=== PATIENT | male | born 1975 | race Caucasian/White ===

== ENCOUNTER 2021-11-01 18:29 | Emergency (ER) | payer OTHER, SELFPAY ==
[2021-11-01 18:39] VITALS: BP 136/74; PULSE 82; RESP 16; TEMP 36.7; O2SAT 100
--- NOTE | 2021-11-01 18:39 | ED.MALEGU ---
HPI - Male Genitourinary General Chief complaint: Urogenital-Male Stated complaint: UTI SYMPTOMS Time Seen by Provider: 11/01/21 18:39 Source: patient, RN notes reviewed and old records reviewed Mode of arrival: ambulatory Limitations: no limitations History of Present Illness HPI Narrative: 46 year old male who present to express care with complaints of burning with urination and frequency since Thursday. Patient reports that he had Variocele surgery on his right testicle about 2 months and denies any acute pain to either testicle. Patient denies any concern for STD's states has not been sexually active, denies any drainage from penis. He reports no fevers chills or sweats, denies any flank pain or any suprapubic abdomen discomfort. MD Complaint: dysuria and other (pain and frequency of urination) Related Data Allergies Allergy/AdvReac Type Severity Reaction Status Date / Time No Known Allergies Allergy Unverified 02/07/13 11:27 Review of Systems Review of Systems: CONSTITUTIONAL: Denies fever, chills, or sweats. EYES: Denies visual changes, redness, or discharge. ENT: Denies rhinorrhea, congestion, sore throat, or otalgia. CARDIOVASCULAR: Denies chest pain, palpitations, or edema. RESPIRATORY: Denies cough or dyspnea. GASTROINTESTINAL: Denies abdominal pain, nausea, vomiting, or diarrhea. GENITOURINARY: positive for dysuria, and urinary frequency, denies any visible hematuria. SKIN: Denies rash or itching. MUSCULOSKELETAL: Denies back pain, joint pain, or myalgia. NEUROLOGIC: Denies headache, numbness, or weakness. PSYCHIATRIC: Denies anxiety or depression. All systems reviewed & are unremarkable except as noted in HPI and below PMFSH Past Medical History Medical History (Updated 11/01/21 @ 22:13 by Neisha Leung NP) Urethritis Surgical History Surgical History (Updated 11/01/21 @ 22:13 by Neisha Leung NP) S/P excision of varicocele 2 months ago on right, left previously Social History Social History (Updated 11/01/21 @ 22:10 by Neisha Leung NP) Smoking status: Never smoker Alcohol intake: current Alcohol use details: social Substance use type: does not use Gender identity (if verbalized by the patient): Male Comments At time of signature, agree with nursing past medical, surgical, social and family history. There is no relevant family history pertinent to the presenting complaint Exam Narrative: GENERAL: Well-appearing, well-nourished, and in no acute distress. HEAD: Normocephalic, atraumatic. EYES: PERRLA and EOMI. ENT: Nares clear, no rhinorrhea or epistaxis. Mucous membranes moist.TM's normal with good light reflex, throat pink with no lesions exudates or tonsil enlargement. NECK: Supple.no lymphadenopathy CHEST: Clear to auscultation. No respiratory distress.no tachypnea, SAO2 100% on room air HEART: Regular rate and rhythm. No murmur heard. Normal peripheral pulses. ABDOMEN: Soft, nontender, nondistended, normal active bowel sounds.No CVA tenderness on examination. Urinary frequency, some dribbling noted with some burning with urination,no tsticular pain or swelling, denies any penial drainage. EXTREMITIES: Normal range of motion. No edema. SKIN: Warm, dry, no rash. NEURO: No focal deficits. Alert and oriented x3. Course Course Level of Care: Express Care Visit Vital Signs Vital signs: Vital Signs Temperature 36.7 C 11/01/21 18:39 Pulse Rate 82 11/01/21 18:39 Respiratory Rate 16 11/01/21 18:39 Blood Pressure 136/74 11/01/21 18:39 Pulse Oximetry 100 11/01/21 18:39 Temperature 36.7 C 11/01/21 18:39 Pulse Rate 82 11/01/21 18:39 Respiratory Rate 16 11/01/21 18:39 Blood Pressure 136/74 11/01/21 18:39 Pulse Oximetry 100 11/01/21 18:39 MDM - Male Genitourinary Differential Diagnosis Differential diagnosis: Likely urinary tract infection, urethritis, epididymitis, prostatitis and other (dysuria) Medical Records Attestation: I reviewed
== END 2021-11-01 19:26 | disposition home or self-care (01) ==
PROVIDERS: Emergency Provider Registered Nurse; PCP Hospitalist
DX: N34.2 Other urethritis (principal)
CPT/HCPCS: 81003; 87086; 99203; G0463